=== PATIENT | female | born 1985 | race American Indian/Alaskan Native ===

== ENCOUNTER 2017-11-14 15:39 | Emergency (ER) | payer MEDICAID ==
[2017-11-14 18:36] LABS: Basophils # (Auto) 0.1 K/mm3 (0.0-0.1); Basophils % (Auto) 0.6 % (0.0-1.8); Eosinophils # (Auto) 0.1 K/mm3 (0.0-0.4); Eosinophils % (Auto) 1.3 % (0.0-4.3); Hematocrit 38.3 % (30.3-42.9); Hemoglobin 12.8 gm/dl (10.1-14.3); Lymphocytes # (Auto) 1.6 K/mm3 (1.2-5.4); Lymphocytes % (Auto) 15.5 % (13.4-35.0); Mean Corpuscular HGB Conc 33 % (30-34); Mean Corpuscular Hemoglobin 30 pg (28-32); Mean Corpuscular Volume 89 fl (79-97); Monocytes # (Auto) 0.9 K/mm3 (0.0-0.8); Monocytes % (Auto) 8.2 % (0.0-7.3); Platelet Count 224 K/mm3 (140-440); Red Blood Count 4.31 M/mm3 (3.65-5.03); Red Cell Distribution Width 13.9 % (13.2-15.2)
[2017-11-14 18:58] LABS: Alanine Aminotransferase 12 units/L (7-56); BUN/Creatinine Ratio 22; Blood Urea Nitrogen 11 mg/dL (7-17); Hemolysis Index 8
[2017-11-14 19:42] LABS: HCG Qualitative,Urine Positive (Negative)
[2017-11-14 19:45] LABS: Bilirubin,Urine NEG (Negative); Blood,Urine NEG (Negative); Color,Urine Yellow (Yellow); Protein,Urine <15 mg/dL mg/dL (Negative)
[2017-11-14 19:46] LABS: Mucus,Urine 2+ /HPF; Nitrite,Urine NEG (Negative)
--- NOTE | 2017-11-14 22:13 | Ultrasound Report ---
FINAL REPORT EXAM: US OB < = 14 WEEKS FETUS HISTORY: poss ectopic . LMP 09/24/2017 with estimated age 7 weeks 2 days and EDC 07/01/2018 TECHNIQUE: Ultrasound of the pelvis using transabdominal imaging PRIORS: None. FINDINGS: Uterus: Uterus is enlarged in size and normal and homogeneous in echogenicity without focal fibroid formation. The uterus measures 9.2 x 6.4 x 5.1 cm in size. There is a single early viable intrauterine gestation noted. Intrauterine gestation: There is a single intrauterine gestation identified with both a pole and yolk sac. heart rate is monitored at 120 BPM using M-mode doppler. [place]-rump length measurement of 0.55 cm corresponds to estimated age 6 weeks 2 days with EDC 07/08/2018. Ovaries: Both ovaries appear normal in size and echogenicity with normal blood flow bilaterally. The right ovary measures 2.9 x 2.1 x 2.4 cm and the left ovary measures 3.3 x 1.3 x 1.7 cm in size. Other: There is no evidence for solid adnexal mass is seen. There is no free fluid in the cul-de-sac. IMPRESSION: Single intrauterine viable with an approximate age of 6 weeks 2 days. No definite evidence for ectopic .
--- NOTE | 2017-11-14 22:55 | Emergency Department Report ---
ED Abdominal Pain HPI - General Chief Complaint: Abdominal Pain Stated Complaint: POSSIBLE EPTOPIC PREG Time Seen by Provider: 11/14/17 22:15 Source: patient Mode of arrival: Ambulatory Limitations: No Limitations - History of Present Illness Initial Comments: Patient with nausea and vomiting for 3 days including diarrhea with 3 bouts of diarrhea in the last 24 hours. has h/o ectopic so here for eval. Complaint: abdominal pain -: Gradual Location: RUQ Radiation: back Migration to: no migration Severity: moderate Severity scale (0 -10): 7 Quality: cramping, sharp Consistency: constant, intermittent Improves With: rest Worsens With: movement Associated Symptoms: nausea, vomiting, diarrhea - Related Data Previous Rx's Medication Instructions Recorded Last Taken Type Ondansetron [Zofran TAB] 4 mg PO Q8HR PRN #15 tablet 11/14/17 Unknown Rx Sucralfate [Carafate] 1 gm PO Q6HR #60 tablet 11/14/17 Unknown Rx Allergies Allergy/AdvReac Type Severity Reaction Status Date / Time acetaminophen Allergy Itching Verified 11/14/17 17:54 amoxicillin Allergy Anaphylaxis Verified 11/14/17 17:54 Latex, Natural Rubber Allergy Rash Verified 11/14/17 17:54 ED Review of Systems ROS: Stated complaint: POSSIBLE EPTOPIC PREG Other details as noted in HPI Constitutional: denies: chills, fever Eyes: denies: eye pain, eye discharge, vision change ENT: denies: ear pain, throat pain Respiratory: denies: cough, shortness of breath, wheezing Cardiovascular: denies: chest pain, palpitations Endocrine: no symptoms reported Gastrointestinal: abdominal pain, nausea, diarrhea Genitourinary: denies: urgency, dysuria, discharge Musculoskeletal: denies: back pain, joint swelling, arthralgia Skin: denies: rash, lesions Neurological: denies: headache, weakness, paresthesias Psychiatric: denies: anxiety, depression Hematological/Lymphatic: denies: easy bleeding, easy bruising ED Past Medical Hx - Social History Smoking Status: Never Smoker Substance Use Type: None - Medications Home Medications: Home Medications Medication Instructions Recorded Confirmed Last Taken Type Ondansetron [Zofran TAB] 4 mg PO Q8HR PRN #15 tablet 11/14/17 Unknown Rx Sucralfate [Carafate] 1 gm PO Q6HR #60 tablet 11/14/17 Unknown Rx ED Physical Exam - General Limitations: No Limitations General appearance: alert, in no apparent distress - Head Head exam: Present: atraumatic, normocephalic - Eye Eye exam: Present: normal appearance - ENT ENT exam: Present: mucous membranes moist - Neck Neck exam: Present: normal inspection - Respiratory Respiratory exam: Present: normal lung sounds bilaterally. Absent: respiratory distress - Cardiovascular Cardiovascular Exam: Present: regular rate, normal rhythm. Absent: systolic murmur, diastolic murmur, rubs, gallop - GI/Abdominal GI/Abdominal exam: Present: soft, tenderness (diffusely but greatest at RLQ. No peritonitis.), normal bowel sounds - Extremities Exam Extremities exam: Present: normal inspection - Back Exam Back exam: Present: normal inspection - Neurological Exam Neurological exam: Present: alert, oriented X3 - Psychiatric Psychiatric exam: Present: normal affect, normal mood - Skin Skin exam: Present: warm, dry, intact, normal color. Absent: rash ED Course Vital Signs 11/14/17 17:45 Temperature 98.0 F Pulse Rate 77 Respiratory 18 Rate Blood Pressure 137/64 O2 Sat by Pulse 100 Oximetry ED Medical Decision Making - Lab Data Result diagrams: 11/14/17 18:10 11/14/17 18:10 unremarkable - Radiology Data Radiology results: report reviewed No evidence of ectopic . Has viable IUP at 6 weeks and 2 days. - Medical Decision Making Patient with normal vitals and labs with IUP and no evidence of Ectopic . Patient with GI symptoms for 3 days that appear to be resolving. Will do carafate and zofran for supportive care. Follow up with OB. Critical care attestation.: If time is entered above; I have spent that time in minutes in the direct care of this critically ill patient, excluding procedure time. ED Disposition Clinical Impression: Viral gastroenteritis Normal IUP (intrauterine ) on ultrasound Qualifiers: Trimester: first trimester Qualified Code(s): Z34.91 - Encounter for supervision of normal , unspecified, first trimester Disposition: DC-01 TO HOME OR SELFCARE Is pt being admited?: No Does the pt Need Aspirin: No Condition: Stable Instructions: Abdominal Pain (ED), (ED) Prescriptions: Ondansetron [Zofran TAB] 4 mg PO Q8HR PRN #15 tablet PRN Reason: Nausea Sucralfate [Carafate] 1 gm PO Q6HR #60 tablet Referrals: ION MARTINEZ MD [Staff Physician] - 3-5 Days [facility] [Outside] - 3-5 Days Time of Disposition: 23:00
[2017-11-14 23:19] VITALS: BP 128/80
--- NOTE | 2017-11-15 00:20 | Ultrasound Report ---
FINAL REPORT EXAM: US OB TRANSVAGINAL HISTORY: poss ectopic COMPARISON: November 14, 2017. TECHNIQUE: Several real-time grayscale and color Doppler images were obtained. Transvaginal exam. FINDINGS: The uterus measures 10.2 x 5.1 x 6.4 centimeters. Right ovary measures 3.1 x 2.3 x 2.6 centimeters. Left ovary measures 3.3 x 1.6 x 1.9 centimeters. Single live IUP. Estimated gestational age 6 weeks 4 days. Estimated delivery date July 06, 2018. No adnexal masses are demonstrated. Cervix is closed. Yolk sac is present. IMPRESSION: Single live IUP. Estimated gestational age 6 weeks 4 days. Estimated delivery date July 06, 2018. No adnexal masses are demonstrated.
== END 2017-11-14 23:20 | disposition home or self-care (01) ==
LOC: ED 15:39
DX: O99.611 Diseases of the digestive system complicating pregnancy, first trimester (principal); A08.4 Viral intestinal infection, unspecified; Z34.91 Encounter for supervision of normal pregnancy, unspecified, first trimester; Z3A.01 Less than 8 weeks gestation of pregnancy; Z88.1 Allergy status to other antibiotic agents; Z91.040 Latex allergy status
CPT/HCPCS: 36415; 76801; 76817; 80053; 81001; 81025; 85025

== ENCOUNTER 2018-04-05 14:34 | Outpatient (CLI) | payer MEDICAID ==
[2018-04-05] MEDS ORDERED: LACTATED RINGERS 500 ML IV ONE (14:51)
[2018-04-05 16:27] LABS: Bacteria,Urine 1+ /HPF (Negative); Bilirubin,Urine NEG (Negative); Blood,Urine NEG (Negative); Color,Urine Yellow (Yellow); Mucus,Urine 1+ /HPF; Protein,Urine <15 mg/dL mg/dL (Negative); Urobilinogen,Urine < 2.0 mg/dL (<2.0)
[2018-04-05 16:55] VITALS: BP 104/58
[2018-04-05] MEDS ORDERED: LACTATED RINGERS 1,000 ML IV ONE (16:56)
[2018-04-05] MEDS ORDERED: TYLENOL PO ONE (16:56)
--- NOTE | 2018-04-05 20:49 | Ultrasound Report ---
FINAL REPORT EXAM: US OB FOLLOW UP HISTORY: pain in the pelvis TECHNIQUE: Limited obstetrical ultrasound PRIORS: None. FINDINGS: US Age (average) = 28 w 5d EFW (BPD,HC,AC,FL) = 1229 g US EDC 06/23/2018 HC/AC 1.15 BPD 7.3 cm corresponding to estimated age 29 weeks 2 days HC 27.0 cm corresponding to estimated age 29 weeks 3 days AC 23.5 cm corresponding to estimated age 27 weeks 6 days FL 5.4 cm corresponding to estimated age 28 weeks 5 days Presentation: Breech Activity: Monitored Placental location: Anterior with no evidence for abruption Placental grade: 0 Cardiac motion: 130 BPM using M-mode doppler Amniotic Fluid Volume: Adequate YAMILE 11.8 cm Cervical Length: 3.3 cm IMPRESSION: Single intrauterine viable with an approximate age of 28 weeks 5 days. No evidence for placental abruption is seen.
== END 2018-04-05 19:30 | disposition home or self-care (01) ==
LOC: TRG 14:34
PROVIDERS: ATTEND Obstetrics & Gynecology
DX: O47.02 False labor before 37 completed weeks of gestation, second trimester (principal); Z3A.27 27 weeks gestation of pregnancy
CPT/HCPCS: 59025; 76816; 81001; 96360; J7120

== ENCOUNTER 2018-05-08 13:25 | Outpatient (CLI) | payer MEDICAID ==
[2018-05-08 15:42] VITALS: BP 115/68
[2018-05-08 15:48] LABS: Bacteria,Urine 1+ /HPF (Negative); Bilirubin,Urine NEG (Negative); Blood,Urine NEG (Negative); Color,Urine Yellow (Yellow); Mucus,Urine FEW /HPF; Protein,Urine <15 mg/dL mg/dL (Negative); Urobilinogen,Urine < 2.0 mg/dL (<2.0)
[2018-05-08] MEDS ORDERED: LACTATED RINGERS 500 ML IV ONE (16:18)
[2018-05-08 17:50] LABS: Hematocrit 32.7 % (30.3-42.9); Hemoglobin 10.6 gm/dl (10.1-14.3); Mean Corpuscular HGB Conc 33 % (30-34); Mean Corpuscular Hemoglobin 28 pg (28-32); Mean Corpuscular Volume 86 fl (79-97); Red Blood Count 3.81 M/mm3 (3.65-5.03); Red Cell Distribution Width 14.9 % (13.2-15.2)
[2018-05-08 18:14] LABS: Alanine Aminotransferase 9 units/L (7-56); Uric Acid 2.7 mg/dL (3.5-7.6)
[2018-05-08 18:16] LABS: Platelet Count 181 K/mm3 (140-440)
--- NOTE | 2018-05-08 19:55 | Ultrasound Report ---
FINAL REPORT PROCEDURE: US OB > = 14 WEEKS FETUS TECHNIQUE: Real-time transabdominal sonography of the uterus, placenta, amniotic fluid, adnexa, and fetus was performed with image documentation. Detailed anatomic examination was performed. Measurements were obtained to determine age/size. M-mode Doppler was used to document heartbeat. CPT 88697 HISTORY: abd pain COMPARISON: Prior Ob ultrasound 11/14/2017 FINDINGS: Single living intrauterine gestation currently visualized in the vertex presentation with a heart rate of 137 beats per minute. Subjectively the amount of amniotic fluid appears normal. The amniotic fluid index is normal measuring 14.9 centimeter. The placenta is located anterior and is grade 1. No abruption is seen. The internal cervical os is not clearly visualized. I do not see gross evidence of placenta previa. Cervix length 2.9 centimeter. Posterior fossa the brain lateral ventricles and cavum septum pellucidum are unremarkable. stomach and bladder are visualized. Four-chamber view of the heart is suboptimally seen. No gross abnormality is visualized. Kidneys are unremarkable. No gross abnormalities of the diaphragm are visualized. cervical spine and thoracic spine show no gross abnormality. The lumbar spine is only partially visualized. Umbilical cord is suboptimally seen. Three-vessel cord appears to be visualized although suboptimally displayed. Two arcuate arteries are present at the level of the urinary bladder suggesting there is a three-vessel cord. Facial profile was not obtained. upper lip is not demonstrated. MEASUREMENTS: BPD: 8.5 centimeter equals 34 weeks 0 days HC: 30.9 centimeter equals 34 week 3 days AC: 27.1 centimeter quit 31 week 1 day FL: 6.4 centimeter equaled 33 week 1 day Average sonographic age by today's study 33 week 1 day. Expected age by the initial exam performed on 11/14/2017 31 weeks 2 days. There has been appropriate growth. Growth is upper normal limits. [place] [address]+/-0.5 weeks according to the initial ultrasound exam. Estimated weight 1959 grams +/-290 grams equals 4 pounds 5 ounces +/-10 ounces IMPRESSION: Single living intrauterine gestation visualized currently vertex presentation. Subjectively and by amniotic fluid index the amount of amniotic fluid appears normal. Visualization of anatomy is limited as described. No focal abnormalities are identified. Anterior placenta visualized grade 1 without abruption. Internal cervical os is not visualized well. No gross placenta previa seen. Consider follow-up transvaginal scan. Cervix length 2.9 centimeters. Average sonographic age by today's study 3 3 weeks 1 day, the expected age 31 weeks 2 days. Growth is at the upper limits of normal. Estimated date confinement remains 07/08/2018 +/-0.5 weeks according to the initial ultrasound exam.
== END 2018-05-08 19:34 | disposition home or self-care (01) ==
LOC: TRG 13:25 → LD 14:42 → TRG 19:34
PROVIDERS: ATTEND Obstetrics & Gynecology
DX: O99.343 Other mental disorders complicating pregnancy, third trimester (principal); O16.3 Unspecified maternal hypertension, third trimester; F32.9 Major depressive disorder, single episode, unspecified; Z3A.31 31 weeks gestation of pregnancy; Z83.3 Family history of diabetes mellitus; Z82.49 Family history of ischemic heart disease and other diseases of the circulatory system
CPT/HCPCS: 36415; 59025; 76805; 81001; 82565; 83615; 84450; 84460; 84550; 85027; 87086; 96360; 96361; J7120

== ENCOUNTER 2018-06-17 19:41 | Outpatient (CLI) | payer MEDICAID ==
[2018-06-17 21:09] VITALS: BP 124/83
== END 2018-06-17 21:30 | disposition home or self-care (01) ==
LOC: TRG 19:41
PROVIDERS: ATTEND Obstetrics & Gynecology
DX: O13.3 Gestational [pregnancy-induced] hypertension without significant proteinuria, third trimester (principal); Z3A.36 36 weeks gestation of pregnancy; Z88.0 Allergy status to penicillin
CPT/HCPCS: 59025

== ENCOUNTER 2018-06-19 15:05 | Outpatient (CLI) | payer MEDICAID ==
[2018-06-19 16:42] VITALS: BP 136/82
== END 2018-06-19 18:15 | disposition home or self-care (01) ==
LOC: TRG 15:05
PROVIDERS: ATTEND Obstetrics & Gynecology
DX: O47.03 False labor before 37 completed weeks of gestation, third trimester (principal); Z3A.37 37 weeks gestation of pregnancy; Z88.0 Allergy status to penicillin; Z91.040 Latex allergy status
CPT/HCPCS: 59025